=== PATIENT | female | born 1955 | race Caucasian/White ===

== ENCOUNTER 2021-11-17 10:38 | Outpatient (CLI) | payer MEDICARE, SELFPAY ==
[2021-11-17 21:33] LABS: Cholesterol* 158 mg/dL (90-199); HDL Cholesterol* 69 mg/dL (>=50); LDL Cholesterol Calculated 71 mg/dL (<100); Triglycerides* 88 mg/dL (40-149)
== END 2021-11-17 10:39 | disposition home or self-care (01) ==
PROVIDERS: PCP Physician Assistant Medical; Visit Provider Physician Assistant Medical
DX: Z00.00 Encounter for general adult medical examination without abnormal findings (principal); G89.29 Other chronic pain; M54.9 Dorsalgia, unspecified; I10 Essential (primary) hypertension; R91.1 Solitary pulmonary nodule; M85.80 Other specified disorders of bone density and structure, unspecified site; Z85.05 Personal history of malignant neoplasm of liver; R45.89 Other symptoms and signs involving emotional state; J44.9 Chronic obstructive pulmonary disease, unspecified; Z13.29 Encounter for screening for other suspected endocrine disorder
CPT/HCPCS: 80061; 84443

== ENCOUNTER 2022-11-02 10:01 | Outpatient (CLI) | payer MEDICARE, SELFPAY | END 2022-11-02 10:02 | disposition home or self-care (01) | PROVIDERS: PCP Physician Assistant Medical; Visit Provider Physician Assistant Medical | DX: Z00.00 Encounter for general adult medical examination without abnormal findings (principal); I10 Essential (primary) hypertension; M25.50 Pain in unspecified joint; Z13.6 Encounter for screening for cardiovascular disorders; Z13.29 Encounter for screening for other suspected endocrine disorder | CPT/HCPCS: 80053; 80061; 82105; 82306; 82607; 82784; 84443; 86039; 86140; 86200; 86364 ==

== ENCOUNTER 2023-11-27 09:14 | Outpatient (CLI) | payer MEDICARE, SELFPAY | END 2023-11-27 09:15 | disposition home or self-care (01) | PROVIDERS: PCP Physician Assistant Medical; Visit Provider Physician Assistant Medical | DX: I10 Essential (primary) hypertension (principal); Z85.05 Personal history of malignant neoplasm of liver; Z13.220 Encounter for screening for lipoid disorders; Z13.29 Encounter for screening for other suspected endocrine disorder | CPT/HCPCS: 80053; 80061; 82105; 84443 ==

== ENCOUNTER 2024-01-08 14:52 | Outpatient (CLI) | payer MEDICARE, SELFPAY | END 2024-01-08 14:53 | disposition home or self-care (01) | LOC: US 14:54 | PROVIDERS: PCP Physician Assistant Medical; Visit Provider Physician Assistant Medical | DX: R09.89 Other specified symptoms and signs involving the circulatory and respiratory systems (principal); I77.89 Other specified disorders of arteries and arterioles; R20.0 Anesthesia of skin; Z72.0 Tobacco use | CPT/HCPCS: 93924 ==

== ENCOUNTER 2024-08-15 11:48 | Outpatient (CLI) | payer MEDICARE, SELFPAY | END 2024-08-15 11:49 | disposition home or self-care (01) | LOC: LKVREF 12:00 | PROVIDERS: PCP Physician Assistant Medical; Visit Provider Physician Assistant Medical | DX: R30.9 Painful micturition, unspecified (principal) | CPT/HCPCS: 87086; 87186 ==

== ENCOUNTER 2024-12-09 08:42 | Outpatient (CLI) | payer MEDICARE, SELFPAY | END 2024-12-09 08:43 | disposition home or self-care (01) | PROVIDERS: PCP Physician Assistant Medical; Visit Provider Physician Assistant Medical | DX: R16.0 Hepatomegaly, not elsewhere classified (principal); Z85.05 Personal history of malignant neoplasm of liver | CPT/HCPCS: 80053; 80061; 82105; 85610 ==

== ENCOUNTER 2025-01-15 10:07 | Outpatient (CLI) | payer MEDICARE, SELFPAY | END 2025-01-15 10:08 | disposition home or self-care (01) | PROVIDERS: PCP Physician Assistant Medical; Visit Provider Physician Assistant Medical | DX: R16.0 Hepatomegaly, not elsewhere classified (principal) | CPT/HCPCS: 80053; 82105 ==